=== PATIENT | male | born 1980 | race African-American/Black ===

== ENCOUNTER 2016-12-29 13:37 | Emergency (ER) | payer BC ==
[2016-06-19 19:08] VITALS: BP 158/100
[~2016-12-29 13:37] MED LIST: AMOX875T PO; CEPH-264 PO; DICL250C PO; HYDR-971 PO; MUPI15CR TP; NAPR500T8 PO
[2016-12-30] MEDS ORDERED: CLIN-44 PO (11:34)
[2016-12-30] MEDS ORDERED: NAPR500T8 PO (11:34)
== END 2016-12-29 14:17 | disposition left against medical advice (07) ==
LOC: ER 13:37
DX: S89.92XA Unspecified injury of left lower leg, initial encounter (principal); Z53.21 Procedure and treatment not carried out due to patient leaving prior to being seen by health care provider; X58.XXXA Exposure to other specified factors, initial encounter; Y93.89 Activity, other specified; Y92.89 Other specified places as the place of occurrence of the external cause; Y99.8 Other external cause status

== ENCOUNTER 2016-12-30 10:14 | Emergency (ER) | payer BC ==
[~2016-12-30] VITALS: Ht 188 cm; Wt 79.4 kg
[2016-12-30] MEDS ORDERED: NAPROXEN 500 MG TABLET PO STA (10:36)
[2016-12-30] MEDS ORDERED: DIPHTH,PERTUSS(ACELL),TET TOX 0.5 ML DISP.SYRIN. VAX IM ONE (10:45)
[2016-12-30] MEDS ORDERED: HYDROCODONE/APAP 5/325MG TABLET. PO ONE (10:45)
--- NOTE | 2016-12-30 11:00 | RAD ---
EXAM: Left knee, 4 views HISTORY: Left knee swelling, pain and redness. COMPARISON: None. FINDINGS: There is extensive prepatellar soft tissue swelling. No soft tissue gas or soft tissue calcification is seen. No fractures are identified. Joint spaces are maintained. Alignment is normal. There is no joint effusion. IMPRESSION: 1. Extensive prepatellar soft tissue swelling consistent with prepatellar bursitis.
[2016-12-30] MEDS ORDERED: CLIN-44 PO (11:34)
[2016-12-30] MEDS ORDERED: NAPR500T8 PO (11:34)
--- NOTE | 2016-12-30 11:34 | PHYS DOC ---
Past Medical History Past Medical History: Hypertension, Other Additional Past Medical Histor: IMPETIGO Past Surgical History: No Surgical History Alcohol Use: Occasionally Drug Use: None Adult General Chief Complaint Chief Complaint: KNEE INJURY HPI HPI Patient is a 36 year old male who presents with mild left anterior knee pain with swelling that began 7 days ago. 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 Review of Systems Review of Systems Constitutional: Denies fever or chills [] Eyes: Denies change in visual acuity, redness, or eye pain [] Musculoskeletal:mild left anterior knee pain is not in Integument: Denies rash or skin lesions [] Neurologic: Denies headache, focal weakness or sensory changes [] Endocrine: Denies polyuria or polydipsia [] Current Medications Current Medications Current Medications Medications (Trade) Dose Ordered Sig/Delphine Start Time Stop Time Status Last Admin Dose Admin Acetaminophen/ Hydrocodone Bitart (Lortab 5/325) 2 tab 1X ONCE 12/30/16 10:45 12/30/16 10:46 DC Diphtheria/ Tetanus/Acell Pertussis (Boostrix) 0.5 ml ONCE ONCE 12/30/16 10:45 12/30/16 10:46 DC 12/30/16 10:43 0.5 ML Naproxen (Naprosyn) 500 mg 1X STAT 12/30/16 10:36 12/30/16 10:39 DC 12/30/16 10:42 500 MG Allergies Allergies Allergies Coded Allergies Type Severity Reaction Last Updated Verified No Known Drug Allergies 12/30/16 No Physical Exam Physical Exam Constitutional: Well developed, well nourished, no acute distress, non-toxic appearance. [] HENT: Normocephalic, atraumatic, bilateral external ears normal, oropharynx moist, no oral exudates, nose normal. [] Skin: Warm, dry, no erythema, no rash. [] Back: No tenderness, no CVA tenderness. [] Extremities: Left knee anterior aspect with diffuse mild soft tissue swelling. There is a 2 x 2 centimeter scabbed up wound on the left anterior lower knee. There is some redness stretching from the scabbed area throughout the knee consistent with superficial cellulitis. The knee is warm and very tender to touch. Full range of motion to the left knee. Negative Remy sign and negative Logan's sign negative anterior-posterior drawer sign to the left knee. +2 left pedal pulse. Cap refill less than 2 seconds the left lower extremity. Sensation intact to the left lower extremity. Neurologic: Alert and oriented X 3, normal motor function, normal sensory function, no focal deficits noted. [] Psychologic: Affect normal, judgement normal, mood normal. [] Current Patient Data Vital Signs Vital Signs Date Time Temp Pulse Resp B/P Pulse Ox O2 Delivery O2 Flow Rate FiO2 12/30/16 10:30 98.5 96 16 99 Room Air 98.5 EKG EKG [] Radiology/Procedures Radiology/Procedures []PROCEDURE: KNEE LEFT 4V EXAM: Left knee, 4 views HISTORY: Left knee swelling, pain and redness. COMPARISON: None. FINDINGS: There is extensive prepatellar soft tissue swelling. No soft tissue gas or soft tissue calcification is seen. No fractures are identified. Joint spaces are maintained. Alignment is normal. There is no joint effusion. IMPRESSION: 1. Extensive prepatellar soft tissue swelling consistent with prepatellar bursitis. DICTATED and SIGNED BY: LINDA SILVERIO MD DATE: 12/30/16 1056 CC: UMER GREGORY [employer]; NO PCP ~ Course & Med Decision Making Course & Med Decision Making Pertinent Labs and Imaging studies reviewed. (See chart for details) Patient is in the ED with left knee pain and swelling for 7 days. He fell on the knee. Left knee x-ray interpreted by radiologist is noted for extensive prepatellar soft tissue swelling consistent with prepatellar bursitis. Physical exam is also consistent with cellulitis stretching from a 2 x 2 centimeter scab on the knee. Patient was given tetanus in the ED. Discharged with clindamycin for 10 days. Discharged with naproxen for pain. Instructed to ice and elevate the extremity. Provided crutches in the ED. Immobilizer applied to the left knee by the integration technician ,neurovascular exam done by me is normal, cap refill less than 2 seconds. Instructed to follow-up with orthopedic doctor in the next 7 days. Encouraged to ice and elevate the extremity. Discharged in stable condition. Dragon Disclaimer Dragon Disclaimer This electronic medical record was generated, in whole or in part, using a voice recognition dictation system. Departure Departure Impression: Primary Impression: Prepatellar bursitis, left knee Additional Impression: Cellulitis of knee, left Disposition: HOME, SELF-CARE Condition: STABLE Referrals: NO PCP (PCP) MARBIN PALACIOS MD follow-up with the provided orthopedic doctor in the next 7 days. Patient Instructions: Bursitis, [id number], Cellulitis Additional Instructions: You have bursitis and cellulitis of the left knee. Keep the knee iced and elevated. Wear the immobilizer as tolerated. Follow-up with the provided orthopedic doctor in the next 7 days. Come back to the ED at any point symptoms worsen or you develop a fever. Scripts Clindamycin Hcl 150 Mg Capsule3 Cap PO TID #90 CAP Prov:UMER GREGORY APRN 12/30/16 Naproxen 500 Mg Tablet.dr1 Tab PO BID #60 TAB Ref 2 Prov:UMER GREGORY APRN 12/30/16 Problem Qualifiers UMER GREGORY APRN Dec 30, 2016 11:34
[2016-12-30 11:55] VITALS: BP 133/93
== END 2016-12-30 12:03 | disposition home or self-care (01) ==
LOC: ER 10:14
DX: M70.42 Prepatellar bursitis, left knee (principal); I10 Essential (primary) hypertension; W17.89XA Other fall from one level to another, initial encounter; Y93.41 Activity, dancing; Y99.8 Other external cause status; Y92.89 Other specified places as the place of occurrence of the external cause
CPT/HCPCS: 29505; 73564; 90471; 90715; 99284-25